=== PATIENT | female | born 1995 | race Caucasian/White ===

== ENCOUNTER 2019-07-14 12:26 | Emergency (ER) | payer OTHER, SELFPAY ==
[2019-07-14 13:05] VITALS: BP 102/60; PULSE 59; RESP 18; TEMP 36.8; O2SAT 100
--- NOTE | 2019-07-14 13:08 | DI.RAD.S_ITS ---
PROCEDURE: XR HAND LT MIN 3V INDICATIONS: wound TECHNIQUE: 3 views of the hand(s) acquired. COMPARISON: None. FINDINGS: Bones: No displaced fractures or dislocations. Carpal bones are normally aligned. No suspicious bony lesions. Soft tissues: No suspicious soft tissue calcifications. There may be soft tissue swelling along the ulnar aspect of the hand. No unexpected radiopaque foreign bodies are identified. IMPRESSION: 1. No acute fractures. 2. No radiopaque foreign bodies. Dictated by: Ko Dover M.D. on 07/14/2019 at 13:01 Approved by: Ko Dover M.D. on 07/14/2019 at 13:02
[2019-07-14] MEDS: LIDOCAINE/PRILOCAINE 5 GM TOP (15:04)
[2019-07-14] MEDS: TET,DIPH,PERTUSS(ACELL),VAC/PF 0.5 ML SYRINGE IM (15:04)
--- NOTE | 2019-07-14 16:54 | ED.UPPEXIN ---
HPI - Extremity Injury (Upper) <GABBY Doan - Last Filed: 07/14/19 21:15> General Chief Complaint: Extremity Injury, Upper Stated Complaint: LEFT HAND LACERATION Time Seen by Provider: 07/14/19 14:46 Source: patient Mode of arrival: ambulatory Limitations: no limitations History of Present Illness HPI narrative: The patient is a 24-year-old female nonsmoker who denies contributory medical history presents with a chief complaint of laceration at the base of her 2nd digit of her left hand. 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 She does not know when her last tetanus was. She states she has full range of motion of all fingers of her left hand. Happened an hour prior to arrival. She states that she has been very queasy with the cut and bleeding. Related Data Allergies Allergy/AdvReac Type Severity Reaction Status Date / Time No Known Drug Allergies Allergy Verified 07/14/19 13:07 Review of Systems <GABBY Doan - Last Filed: 07/14/19 21:15> Review of Systems GENERAL: Denies chills, fatigue, malaise, fever, sweats. HEENT: Denies sinus pain, ear pain, sore throat, difficulty swallowing, dizziness. RESPIRATORY: Denies dyspnea, cough, wheezing, hemoptysis, sputum. CARDIOVASCULAR: Denies chest pain, palpitations, orthopnea, edema, GASTROINTESTINAL: Denies nausea, vomiting, abdominal pain, diarrhea, constipation, melena. : Denies dysuria, frequency, incontinence, hematuria, urinary retention. MUSCULOSKELETAL: denies weakness, joint pain, or bony pain SKIN: See HPI NEUROLOGIC: Denies weakness, headache, numbness, change in speech, confusion, seizures, incoordination. PSYCHIATRIC: No concerning psychosocial issues. 12 point review of systems is negative except for those stated above PFSH <GABBY Doan - Last Filed: 07/14/19 21:15> Medical History (Updated 07/14/19 @ 21:11 by GABBY Doan) Family history non-contributory (Acute) Medical history non-contributory (Acute) Social History Smoking Status: Never smoker Social History Smoking Status: Never smoker Exam <GABBY Doan - Last Filed: 07/14/19 21:15> Narrative Exam Narrative: GENERAL: This is a well-nourished, well-developed patient, no acute distress HEAD: Atraumatic. Normocephalic. No temporal or scalp tenderness. EYES: Pupils equal round and reactive. Extraocular motions intact. No scleral icterus. No injection or drainage. ENT: Nose without bleeding, purulent drainage or septal hematoma. Throat without erythema, tonsillar hypertrophy or exudate. Uvula midline. Airway patent. NECK: Trachea midline. No JVD or lymphadenopathy. Supple, nontender, no meningeal signs. CARDIOVASCULAR: Regular rate and rhythm RESPIRATORY: No cough. No increased respiratory effort. No accessory muscle use. EXTREMITIES: Full range of motion noted left hand. Capillary refill less than 2 seconds all fingers left hand. Positive radial pulse. BACK: Nontender without deformity or crepitance. No flank tenderness. NEURO: AOx3. SKIN: 1 cm laceration at the base of the left 2nd digit. No obvious muscle or tendon involvement. No obvious foreign body. Wound is straight well-approximated. Initial Vital Signs Initial Vital Signs: Vital Signs Temperature 98.2 F 07/14/19 13:05 Pulse Rate 59 L 07/14/19 13:05 Respiratory Rate 18 07/14/19 13:05 Blood Pressure 102/60 07/14/19 13:05 Pulse Oximetry 100 07/14/19 13:05 <Mir Gomez DO - Last Filed: 07/15/19 03:55> Initial Vital Signs Initial Vital Signs: Vital Signs Temperature 98.2 F 07/14/19 13:05 Pulse Rate 59 L 07/14/19 13:05 Respiratory Rate 18 07/14/19 13:05 Blood Pressure 102/60 07/14/19 13:05 Pulse Oximetry 100 07/14/19 13:05 Procedures <GABBY Doan - Last Filed: 07/14/19 21:15> Laceration Repair Laceration 1: Site: hand Side (If applicable): left Size (cm): 1 Description: linear Depth: simple, single layer Local Anesthetic: other anesthetic (emla) Pre-repair: wound explored, irrigated extensively (Sterile water. Hibiclens.) and deep structures intact Skin layer closed with: steri-strips Course <GABBY Doan - Last Filed: 07/14/19 21:15> Orders Ordered: Discontinued Medications Diphtheria/Tetanus/Acell Pertussis (Adacel) 0.5 ml IM .ONCE ONE Stop: 07/14/19 14:49 Last Admin: 07/14/19 15:04 Dose: 0.5 ml Lidocaine/Prilocaine (Lidocaine-Prilocaine Cream) 5 gm TOP NOW ONE Stop: 07/14/19 14:57 Last Admin: 07/14/19 15:04 Dose: 5 gm Vital Signs - 8 hr 07/14/19 17:06 Pulse Rate 56 L Respiratory Rate 18 Blood Pressure 98/63 Pulse Oximetry 100 <Mir Gomez DO - Last Filed: 07/15/19 03:55> Orders Ordered: Discontinued Medications Diphtheria/Tetanus/Acell Pertussis (Adacel) 0.5 ml IM .ONCE ONE Stop: 07/14/19 14:49 Last Admin: 07/14/19 15:04 Dose: 0.5 ml Lidocaine/Prilocaine (Lidocaine-Prilocaine Cream) 5 gm TOP NOW ONE Stop: 07/14/19 14:57 Last Admin: 07/14/19 15:04 Dose: 5 gm Vital Signs - 8 hr 07/14/19 17:06 Pulse Rate 56 L Respiratory Rate 18 Blood Pressure 98/63 Pulse Oximetry 100 MDM - Extremity Injury (Upper) <GABBY Doan - Last Filed: 07/14/19 21:15> Imaging Data Hand x-ray: Radiologist's impression: [place] [address] XRay Report Signed Patient: Kaley Edmondson JMR#: [id number] : 1995Acct:[id number] Age/Sex: 24 / FDate of Service: 07/14/19 Loc: ED Accession Number: [id number] Procedure: XR hand LT min 3V Ordering Provider: Lela Rivera MD PROCEDURE: XR HAND LT MIN 3V INDICATIONS: wound TECHNIQUE: 3 views of the hand(s) acquired. COMPARISON: None. FINDINGS: Bones: No displaced fractures or dislocations. Carpal bones are normally aligned. No suspicious bony lesions. Soft tissues: No suspicious soft tissue calcifications. There may be soft tissue swelling along the ulnar aspect of the hand. No unexpected radiopaque foreign bodies are identified. IMPRESSION: 1. No acute fractures. 2. No radiopaque foreign bodies. Dictated by: Ko Dover M.D. on 07/14/2019 at 13:01 Approved by: Ko Dover M.D. on 07/14/2019 at 13:02 [facility] Narrative Medical decision making narrative: The patient is a 24-year-old female presents with a laceration. Her tetanus was made up-to-date. Her wound was cleansed. Given her discomfort with needles as well as blood, we elected to do Steri-Strips for closure. I discussed at length monitoring for signs and symptoms of infection such as redness swelling discharge and pus. Encourage PCP follow-up. Discussed follow-up with L and I provider. Discussed come back to the ER for any acute concerns. Discussed resting that hand. Patient has no questions or concerns upon discharge. Discharge Plan Departure Patient Disposition: Home Clinical Impression: Laceration Discharge Date/Time: 07/14/19 17:08 Interventions: ED Discharge Assessment Last Done: 07/14/19 17:06 Instructions: DI for Laceration Repair Steri-Strips Activity Restrictions/Additional Instructions: Please keep the laceration clean and dry. Do not submerge it dirty water. This will increase your chance of infection. Today we updated her tetanus. Your x-ray shows no obvious fracture or foreign body. Please contact [facility] for a follow-up provider. Please come back to the emergency department for any acute concerns. Stand Alone Forms: Work Release Note <Mir Gomez DO - Last Filed: 07/15/19 03:55> Cosign ED Attending Andrez Attestation: I was immediately available in the department for consultation. Documentation has been reviewed. I agree with assessment and plan.
[2019-07-14 17:06] VITALS: BP 98/63; PULSE 56; RESP 18; O2SAT 100
== END 2019-07-14 17:08 | disposition home or self-care (01) ==
PROVIDERS: Emergency Provider Nurse Practitioner Family
DX: S61.412A Laceration without foreign body of left hand, initial encounter (principal); W26.9XXA Contact with unspecified sharp object(s), initial encounter; Y99.0 Civilian activity done for income or pay
CPT/HCPCS: 73130; 90471; 99283; 90715